=== PATIENT | male | born 1975 | race Caucasian/White ===

== ENCOUNTER 2023-12-23 04:08 | Day surgery (SDC) | payer OTHER ==
[2023-12-16 14:37] VITALS: BMI 44.9
[2023-12-23 09:25] VITALS: TEMP 98.3
[2023-12-23 09:59] VITALS: RESP 17
[2023-12-23 10:23] VITALS: BP 140/78; PULSE 65
== END 2023-12-23 09:55 | disposition home or self-care (01) ==
LOC: JASU-ENDO 04:08
PROVIDERS: ATTEND Internal Medicine Gastroenterology
PROC: 0DJD8ZZ Inspection of Lower Intestinal Tract, Via Natural or Artificial Opening Endoscopic (ICD-10-PCS; principal; 2023-12-23 08:45)
DX: Z12.11 Encounter for screening for malignant neoplasm of colon (principal); K57.30 Diverticulosis of large intestine without perforation or abscess without bleeding; K64.8 Other hemorrhoids